=== PATIENT | male | born 1975 | race Caucasian/White ===

== ENCOUNTER → 2021-12-13 | Outpatient (CLI) | payer OTHER ==
[~2021-12-13] MED LIST: BACTRIM DS TAB1 EACH PO; BACTROBAN NASAL1 G1 TOP; CLARITIN10 MG PO; DICLOFENAC SODI75 MG PO; FLOXIN 0.3% OTIC5 ML AD; KEFLEX CAP 500500 MG PO; TIZANIDINE HCL2 MG PO; VIT D PO
== END ==
LOC: EMI 15:59
DX: M54.50 Low back pain, unspecified (principal); M51.37 Other intervertebral disc degeneration, lumbosacral region; M43.17 Spondylolisthesis, lumbosacral region
CPT/HCPCS: 72148

== ENCOUNTER → 2021-12-27 | Outpatient (CLI) | payer OTHER | LOC: KOH-I 11:53 | DX: M54.50 Low back pain, unspecified (principal) | CPT/HCPCS: 72100 ==